=== PATIENT | female | born 1985 | race Two or more races ===

== ENCOUNTER 2022-09-09 21:12 | Inpatient (IN) | payer MEDICAID, OTHER ==
[~2022-09-09] VITALS: Ht 152.4 cm; Wt 71.5 kg
[2022-09-09] MEDS ORDERED: ROCURONIUM 10MG/ML 10ML VIAL IV ONE ×3 (21:41→23:00)
[2022-09-09] MEDS ORDERED: ETOMIDATE (2MG/ML) 20ML VIAL IV ONE ×2 (21:41→22:00)
[2022-09-09 21:51] VITALS: BP_SYST 137; BP_SYST 90; BP_DIAS 59; BP_DIAS 94
[2022-09-09] MEDS ORDERED: PROPOFOL 100 ML IV ONE (22:00)
[2022-09-09] MEDS ORDERED: fentaNYL Drip 2500mCg/250mlNS 250 ML IV ONE (22:04)
[2022-09-09 22:15] LABS: Basophils # (auto) 0 10 ^3/uL (0-0.2); Basophils % (auto) 0.4 % (0.0-2.0); Eosinophils # (auto) 0.1 10 ^3/uL (0-0.8); Eosinophils % (auto) 1.1 % (0.0-7.0); Hematocrit 38.4 % (36.0-46.0); Hemoglobin 13.3 g/dL (12.2-16.2); Lymphocytes # (auto) 2.1 10 ^3/uL (0.4-5.4); Lymphocytes % (auto) 23.4 % (10.0-50.0); Mean Corpuscular Hemoglobin 30.5 pg (28.0-32.0); Mean Corpuscular Hgb Conc. 34.6 g/dL (32.0-36.0); Monocytes # (auto) 0.7 10 ^3/uL (0-1.3); Monocytes % (auto) 7.7 % (0.0-12.0); Neutrophils # (auto) 6.1 10 ^3/uL (1.6-8.6); Neutrophils % (auto) 67.4 % (37.0-80.0); Nucleated Red Blood Cells % 0.1 %; Red Blood Cells 4.36 10^6/uL (4.0-5.20); Red Cell Distribution Width 12.5 % (11.8-14.3)
[2022-09-09 22:34] LABS: Albumin 3.5 g/dL (3.4-5.0); BUN/Creatinine Ratio 13.6 (10.0-20.0); Calcium 8.6 mg/dL (8.5-10.1); Potassium 3.3 mmol/L (3.5-5.1)
[2022-09-09 22:36] LABS: Salicylate < 1.7 mg/dL (2.8-20.0)
[2022-09-09 22:37] LABS: Bilirubin, Total 0.1 mg/dL (0.2-1.0); Total Protein 7.7 g/dL (6.4-8.2)
[2022-09-09 22:42] LABS: Acetaminophen < 2.0 ug/mL (10-30)
[2022-09-09] MEDS: fentaNYL Drip 2500mCg/250mlNS 250 ML IV SCH (22:45)
[2022-09-09] MEDS: PROPOFOL 100 ML IV SCH (22:45)
[2022-09-09 23:43] VITALS: BP 90/59
[2022-09-10] VITALS (71 sets, daily range): BP systolic 82–179; BP diastolic 40–79
[2022-09-10] MEDS ORDERED: NITROGLYCERIN 0.4 MG SL TAB SL PRN
[2022-09-10] MEDS ORDERED: MORPHINE SULFATE INJ 2 MG/ml SYRG IV PRN
[2022-09-10] MEDS ORDERED: THIAMINE 100mg/ml INJ (200mg/2ml VIAL) IV ONE (00:15)
[2022-09-10] MEDS ORDERED: FOLIC ACID 1 MG in D5W 5% 50 ML INJ SCH (00:15)
[2022-09-10] MEDS ORDERED: PANTOPRAZOLE 40 MG/10 ML VIAL INJ IV ONE (00:30)
[2022-09-10 01:00] LABS: Magnesium 2.3 mg/dL (1.6-2.6)
[2022-09-10 01:25] LABS: Amphetamine Screen, Urine NEGATIVE (NEGATIVE); Barbiturate Scree,Urine NEGATIVE (NEGATIVE); Benzodiazephine Screen, Urine NEGATIVE (NEGATIVE); Cannabinoid Screen, Urine NEGATIVE (NEGATIVE); Cocaine Screen, Urine NEGATIVE (NEGATIVE); Opiate Scree,Urine NEGATIVE (NEGATIVE); Phencyclidine Screen, Urine NEGATIVE (NEGATIVE)
[2022-09-10] MEDS: SODIUM CHLORIDE 0.9% 2,000 ML IV ONE ×2 (03:42→06:10)
[2022-09-10] MEDS ORDERED: MIDAZOLAM DRIP 50 mg/50mL 50 ML IV SCH (03:42)
[2022-09-10] MEDS ORDERED: MIDAZOLAM DRIP 50 mg/50mL 50 ML IV ONE (03:42)
[2022-09-10] MEDS: MIDAZOLAM DRIP 50 mg/50mL 50 ML IV SCH ×7 (03:45→20:55)
[2022-09-10] MEDS: POTASSIUM CHL 20MEQ/100ML 100 ML IV SCH ×2 (03:46→07:02)
[2022-09-10] MEDS: SODIUM CHLORIDE 0.9% 1,000 ML IV SCH ×4 (03:51→20:02)
[2022-09-10 05:48] LABS: Basophils # (auto) 0 10 ^3/uL (0-0.2); Basophils % (auto) 0.3 % (0.0-2.0); Eosinophils # (auto) 0.2 10 ^3/uL (0-0.8); Eosinophils % (auto) 1.3 % (0.0-7.0); Hematocrit 33.7 % (36.0-46.0); Hemoglobin 11.5 g/dL (12.2-16.2); Lymphocytes # (auto) 2.9 10 ^3/uL (0.4-5.4); Lymphocytes % (auto) 23.5 % (10.0-50.0); Mean Corpuscular Hemoglobin 31.1 pg (28.0-32.0); Mean Corpuscular Hgb Conc. 34.3 g/dL (32.0-36.0); Mean Corpuscular Volume 90.9 fL (80.0-100.0); Monocytes # (auto) 1.2 10 ^3/uL (0-1.3); Monocytes % (auto) 9.4 % (0.0-12.0); Neutrophils # (auto) 8.1 10 ^3/uL (1.6-8.6); Neutrophils % (auto) 65.5 % (37.0-80.0); Nucleated Red Blood Cells % 0.1 %; White Blood Cell 12.3 10^3/uL (4.4-10.8)
[2022-09-10 06:06] LABS: Albumin 2.8 g/dL (3.4-5.0); Calcium 7.4 mg/dL (8.5-10.1); Potassium 3.4 mmol/L (3.5-5.1)
[2022-09-10 06:09] LABS: BUN/Creatinine Ratio 17.5 (10.0-20.0); Bilirubin, Total 0.3 mg/dL (0.2-1.0); Total Protein 5.7 g/dL (6.4-8.2)
[2022-09-10] MEDS: fentaNYL Drip 2500mCg/250mlNS 250 ML IV SCH ×3 (07:54→20:01)
[2022-09-10] MEDS: PROPOFOL 100 ML IV SCH (07:57)
[2022-09-10] MEDS: NOREPINEPHRINE 8 MG/250ML KIT 250 ML IV SCH (08:00)
[2022-09-10] MEDS: ENOXAPARIN SOD 40 MG/0.4 ML SYRINGE SC SCH (10:51)
[2022-09-10] MEDS: THIAMINE 100mg/ml INJ (200mg/2ml VIAL) IV SCH (10:51)
[2022-09-10] MEDS: PANTOPRAZOLE 40 MG/10 ML VIAL INJ IV SCH (10:51)
[2022-09-10] MEDS: MEROPENEM 1GM IVPB 100 ML IV SCH ×2 (14:17→19:54)
[2022-09-11] VITALS (82 sets, daily range): BP systolic 102–148; BP diastolic 47–83
[2022-09-11] MEDS: MIDAZOLAM DRIP 50 mg/50mL 50 ML IV SCH ×7 (02:15→22:15)
[2022-09-11] MEDS: SODIUM CHLORIDE 0.9% 1,000 ML IV SCH ×4 (03:00→22:55)
[2022-09-11] MEDS: MEROPENEM 1GM IVPB 100 ML IV SCH ×3 (03:00→20:48)
[2022-09-11 06:06] LABS: Hematocrit 36.4 % (36.0-46.0); Mean Corpuscular Hemoglobin 31.1 pg (28.0-32.0); Mean Corpuscular Hgb Conc. 33.1 g/dL (32.0-36.0); Red Blood Cells 3.87 10^6/uL (4.0-5.20); Red Cell Distribution Width 13.1 % (11.8-14.3); White Blood Cell 17.7 10^3/uL (4.4-10.8)
[2022-09-11 06:12] LABS: Band Neutrophils % (manual) 0; Basophils % (manual) 0 (0.0-2.0); Blast Cells 0; Eosinophils % (manual) 0 (0-7); Metamyelocytes % 0; Myelocytes % 0; Promyelocytes % 0; Reactive Lymphocytes 0
[2022-09-11] MEDS: NOREPINEPHRINE 8 MG/250ML KIT 250 ML IV SCH (08:00)
[2022-09-11] MEDS: THIAMINE 100mg/ml INJ (200mg/2ml VIAL) IV SCH (08:44)
[2022-09-11] MEDS: PANTOPRAZOLE 40 MG/10 ML VIAL INJ IV SCH (08:44)
[2022-09-11] MEDS: ENOXAPARIN SOD 40 MG/0.4 ML SYRINGE SC SCH (08:45)
[2022-09-11 09:48] LABS: Lymphocytes % (manual) 14 (10.0-50.0); Monocytes % (manual) 13 (0-12)
[2022-09-11 10:25] LABS: Calcium 8.1 mg/dL (8.5-10.1); Potassium 3.7 mmol/L (3.5-5.1)
[2022-09-11 10:27] LABS: BUN/Creatinine Ratio 15.4 (10.0-20.0)
[2022-09-11] MEDS: LORazepam 2MG/ML-1ML VIAL IV PRN (15:16)
[2022-09-11] MEDS: fentaNYL Drip 2500mCg/250mlNS 250 ML IV SCH (22:45)
[2022-09-11] MEDS: PROPOFOL 100 ML IV SCH (22:45)
[2022-09-12] VITALS (17 sets, daily range): BP systolic 98–131; BP diastolic 40–74
[2022-09-12] MEDS: LORazepam 2MG/ML-1ML VIAL IV PRN ×3 (00:58→15:05)
[2022-09-12] MEDS: MIDAZOLAM DRIP 50 mg/50mL 50 ML IV SCH ×7 (01:35→21:35)
[2022-09-12] MEDS: SODIUM CHLORIDE 0.9% 1,000 ML IV SCH (02:49)
[2022-09-12] MEDS: MEROPENEM 1GM IVPB 100 ML IV SCH ×3 (03:58→18:23)
[2022-09-12 05:42] LABS: Basophils # (auto) 0 10 ^3/uL (0-0.2); Basophils % (auto) 0.1 % (0.0-2.0); Eosinophils # (auto) 0.1 10 ^3/uL (0-0.8); Eosinophils % (auto) 0.7 % (0.0-7.0); Hematocrit 35.7 % (36.0-46.0); Hemoglobin 12.2 g/dL (12.2-16.2); Lymphocytes % (auto) 9.4 % (10.0-50.0); Mean Corpuscular Hemoglobin 30.6 pg (28.0-32.0); Mean Corpuscular Hgb Conc. 34.3 g/dL (32.0-36.0); Mean Corpuscular Volume 89.3 fL (80.0-100.0); Monocytes # (auto) 0.8 10 ^3/uL (0-1.3); Monocytes % (auto) 7.4 % (0.0-12.0); Neutrophils # (auto) 8.8 10 ^3/uL (1.6-8.6); Neutrophils % (auto) 82.4 % (37.0-80.0); Nucleated Red Blood Cells % 0.1 %; Red Cell Distribution Width 12.3 % (11.8-14.3); White Blood Cell 10.6 10^3/uL (4.4-10.8)
[2022-09-12] MEDS: NOREPINEPHRINE 8 MG/250ML KIT 250 ML IV SCH (07:40)
[2022-09-12 10:59] LABS: Potassium 3.9 mmol/L (3.5-5.1)
[2022-09-12 11:07] LABS: BUN/Creatinine Ratio 16.7 (10.0-20.0); Calcium 8.2 mg/dL (8.5-10.1)
[2022-09-12] MEDS: THIAMINE 100mg/ml INJ (200mg/2ml VIAL) IV SCH (11:19)
[2022-09-12] MEDS: PANTOPRAZOLE 40 MG/10 ML VIAL INJ IV SCH (11:20)
[2022-09-12] MEDS: ENOXAPARIN SOD 40 MG/0.4 ML SYRINGE SC SCH (11:20)
[2022-09-12] MEDS: LORazepam 0.5 MG TAB PO SCH ×2 (21:15→21:20)
[2022-09-12] MEDS: OLANZapine 5 MG TAB PO SCH ×2 (21:15→21:20)
[2022-09-12] MEDS: fentaNYL Drip 2500mCg/250mlNS 250 ML IV SCH (22:45)
[2022-09-12] MEDS: PROPOFOL 100 ML IV SCH (22:45)
[2022-09-13] MEDS: MIDAZOLAM DRIP 50 mg/50mL 50 ML IV SCH (00:55)
[2022-09-13] MEDS: MEROPENEM 1GM IVPB 100 ML IV SCH (04:05)
[2022-09-13 05:00] VITALS: BP 95/50
[2022-09-13 06:13] LABS: Basophils # (auto) 0 10 ^3/uL (0-0.2); Basophils % (auto) 0.1 % (0.0-2.0); Eosinophils # (auto) 0.3 10 ^3/uL (0-0.8); Eosinophils % (auto) 4.4 % (0.0-7.0); Hematocrit 37.1 % (36.0-46.0); Hemoglobin 13.2 g/dL (12.2-16.2); Lymphocytes # (auto) 2.1 10 ^3/uL (0.4-5.4); Lymphocytes % (auto) 27.5 % (10.0-50.0); Mean Corpuscular Hemoglobin 31.1 pg (28.0-32.0); Mean Corpuscular Hgb Conc. 35.6 g/dL (32.0-36.0); Mean Corpuscular Volume 87.2 fL (80.0-100.0); Monocytes % (auto) 12.7 % (0.0-12.0); Neutrophils # (auto) 4.3 10 ^3/uL (1.6-8.6); Neutrophils % (auto) 55.3 % (37.0-80.0); Nucleated Red Blood Cells % 0.3 %; Red Blood Cells 4.25 10^6/uL (4.0-5.20); Red Cell Distribution Width 12.7 % (11.8-14.3); White Blood Cell 7.7 10^3/uL (4.4-10.8)
[2022-09-13 06:14] LABS: Calcium 9.1 mg/dL (8.5-10.1); Potassium 3.7 mmol/L (3.5-5.1)
[2022-09-13] MEDS: NOREPINEPHRINE 8 MG/250ML KIT 250 ML IV SCH (08:00)
[2022-09-13] MEDS: THIAMINE 100mg/ml INJ (200mg/2ml VIAL) IV SCH (09:40)
[2022-09-13] MEDS: PANTOPRAZOLE 40 MG/10 ML VIAL INJ IV SCH (09:40)
[2022-09-13] MEDS: LORazepam 0.5 MG TAB PO SCH ×2 (09:41→21:57)
[2022-09-13] MEDS: ENOXAPARIN SOD 40 MG/0.4 ML SYRINGE SC SCH (09:41)
[2022-09-13] MEDS: OLANZapine 5 MG TAB PO SCH ×2 (09:41→21:57)
[2022-09-13] MEDS ORDERED: AMOXICILLIN/CLAVUL 875 MG TAB PO ONE (10:45)
[2022-09-13] MEDS: AMOXICILLIN/CLAVUL 875 MG TAB PO SCH (21:57)
[2022-09-14 06:30] VITALS: BP 101/55
[2022-09-14] MEDS: NOREPINEPHRINE 8 MG/250ML KIT 250 ML IV SCH (08:00)
[2022-09-14] MEDS: PROPOFOL 100 ML IV SCH (08:02)
[2022-09-14] MEDS: THIAMINE 100mg/ml INJ (200mg/2ml VIAL) IV SCH (09:25)
[2022-09-14] MEDS: PANTOPRAZOLE 40 MG/10 ML VIAL INJ IV SCH (09:25)
[2022-09-14] MEDS: ENOXAPARIN SOD 40 MG/0.4 ML SYRINGE SC SCH (09:26)
[2022-09-14] MEDS: AMOXICILLIN/CLAVUL 875 MG TAB PO SCH ×2 (09:26→20:59)
[2022-09-14] MEDS: LORazepam 0.5 MG TAB PO SCH ×2 (09:27→21:04)
[2022-09-14] MEDS: OLANZapine 5 MG TAB PO SCH ×2 (09:27→20:59)
[2022-09-14] MEDS ORDERED: LORazepam 2MG/ML-1ML VIAL IV PRN (16:45)
[2022-09-15] MEDS: OLANZapine 5 MG TAB PO SCH (09:07)
[2022-09-15] MEDS: LORazepam 0.5 MG TAB PO SCH (09:07)
[2022-09-15] MEDS: PANTOPRAZOLE 40 MG/10 ML VIAL INJ IV SCH (09:58)
[2022-09-15] MEDS: THIAMINE 100mg/ml INJ (200mg/2ml VIAL) IV SCH (09:59)
[2022-09-15] MEDS: ENOXAPARIN SOD 40 MG/0.4 ML SYRINGE SC SCH (09:59)
[2022-09-15] MEDS: AMOXICILLIN/CLAVUL 875 MG TAB PO SCH (10:46)
[2022-09-15] MEDS ORDERED: LORazepam 0.5 MG TAB PO PRN (12:45)
== END 2022-09-15 18:27 | disposition left against medical advice (07) | DRG 133 ==
LOC: EDBD 21:12 → ER 21:12 → TELE 23:53 → ICU CENTRL 09-10 09:15 → WEST WING 09-12 16:15
PROVIDERS: ADMIT Registered Nurse; ATTEND Internal Medicine Pulmonary Disease
PROC: 5A1945Z Respiratory Ventilation, 24-96 Consecutive Hours (ICD-10-PCS; principal; 2022-09-10)
PROC: 0BH17EZ Insertion of Endotracheal Airway into Trachea, Via Natural or Artificial Opening (ICD-10-PCS; 2022-09-10)
DX: J96.01 Acute respiratory failure with hypoxia (principal); G92.9 Unspecified toxic encephalopathy; J18.9 Pneumonia, unspecified organism; R45.851 Suicidal ideations; E87.6 Hypokalemia; F10.129 Alcohol abuse with intoxication, unspecified; F20.9 Schizophrenia, unspecified; F19.10 Other psychoactive substance abuse, uncomplicated; Z71.3 Dietary counseling and surveillance; E66.01 Morbid (severe) obesity due to excess calories; Z68.34 Body mass index [BMI] 34.0-34.9, adult; Z53.29 Procedure and treatment not carried out because of patient's decision for other reasons; S51.812A Laceration without foreign body of left forearm, initial encounter; X58.XXXA Exposure to other specified factors, initial encounter; Y93.89 Activity, other specified; Y92.89 Other specified places as the place of occurrence of the external cause; Y99.8 Other external cause status
CPT/HCPCS: 36415; 36600; 70450; 71045; 80048; 80053; 80061; 80307; 80320; 80329; 82140; 82805; 83036; 83735; 84443; 84702; 85007; 85025; 85027; 87040; 87070; 87081; 87205; 93005; 94002; 94003; 96361; 96374; C9113; G0378; J2185; J2250; J2704; J3480; J7060

== ENCOUNTER 2024-01-09 08:55 | Emergency (ER) | payer MEDICAID | END 2024-01-09 09:46 | disposition left against medical advice (07) | LOC: ER 08:55 | DX: F99 Mental disorder, not otherwise specified (principal); Z53.21 Procedure and treatment not carried out due to patient leaving prior to being seen by health care provider ==

== ENCOUNTER 2024-02-05 13:10 | Emergency (ER) | payer MEDICAID ==
[~2024-02-05] VITALS: Ht 160 cm; Wt 44.5 kg
[2024-02-05 13:15] VITALS: BP 102/59; PULSE 82; RESP 16; O2SAT 98
== END 2024-02-05 16:09 | disposition left against medical advice (07) ==
LOC: ER 13:10
DX: R45.851 Suicidal ideations (principal); Z53.21 Procedure and treatment not carried out due to patient leaving prior to being seen by health care provider